=== PATIENT | female | born 1985 | race Two or more races ===

== ENCOUNTER 2021-07-17 08:58 | Outpatient (CLI) | payer OTHER | END 2021-07-17 10:30 | disposition home or self-care (01) | LOC: PRENATAL 08:58 | PROVIDERS: ATTEND Obstetrics & Gynecology Maternal & Fetal Medicine | DX: O09.529 Supervision of elderly multigravida, unspecified trimester (principal); Z36.0 Encounter for antenatal screening for chromosomal anomalies; O02.81 Inappropriate change in quantitative human chorionic gonadotropin (hCG) in early pregnancy ==

== ENCOUNTER 2021-09-12 11:00 | Outpatient (CLI) | payer OTHER | END 2021-09-12 12:15 | disposition home or self-care (01) | LOC: PRENATAL 11:00 | PROVIDERS: ATTEND Obstetrics & Gynecology Maternal & Fetal Medicine | DX: O35.0XX0 Maternal care for (suspected) central nervous system malformation in fetus, not applicable or unspecified (principal); O09.529 Supervision of elderly multigravida, unspecified trimester; Z3A.26 26 weeks gestation of pregnancy ==

== ENCOUNTER 2021-10-24 10:33 | Outpatient (CLI) | payer OTHER | END 2021-10-24 11:28 | disposition home or self-care (01) | LOC: PRENATAL 10:33 | PROVIDERS: ATTEND Obstetrics & Gynecology Maternal & Fetal Medicine | DX: O26.849 Uterine size-date discrepancy, unspecified trimester (principal); O35.0XX0 Maternal care for (suspected) central nervous system malformation in fetus, not applicable or unspecified; O09.529 Supervision of elderly multigravida, unspecified trimester; Z3A.32 32 weeks gestation of pregnancy ==

== ENCOUNTER 2021-10-28 12:44 | Outpatient (CLI) | payer OTHER | END 2021-10-28 13:36 | disposition home or self-care (01) | LOC: PRENATAL 12:44 | PROVIDERS: ATTEND Obstetrics & Gynecology Maternal & Fetal Medicine | DX: O24.419 Gestational diabetes mellitus in pregnancy, unspecified control (principal); Z3A.32 32 weeks gestation of pregnancy ==

== ENCOUNTER 2021-11-28 09:04 | Outpatient (CLI) | payer OTHER | END 2021-11-28 10:15 | disposition home or self-care (01) | LOC: PRENATAL 09:04 | PROVIDERS: ATTEND Obstetrics & Gynecology Maternal & Fetal Medicine | DX: O26.849 Uterine size-date discrepancy, unspecified trimester (principal); O35.0XX0 Maternal care for (suspected) central nervous system malformation in fetus, not applicable or unspecified; O09.529 Supervision of elderly multigravida, unspecified trimester; Z3A.37 37 weeks gestation of pregnancy ==

== ENCOUNTER 2021-12-06 13:45 | Inpatient (IN) | payer OTHER ==
[~2021-12-06] VITALS: Ht 167.6 cm; Wt 100.2 kg
[2021-12-17] MEDS ORDERED: PRENATAL TABLE1 EAC3 (08:51)
== END 2021-12-19 11:59 | disposition home or self-care (01) | DRG 807 ==
LOC: LDR 12-17 07:06 → OB/GYN 12-17 12:15 → LDR 12-17 12:29 → OB/GYN 12-17 13:07
PROVIDERS: ADMIT Obstetrics & Gynecology; ATTEND Obstetrics & Gynecology
PROC: 10E0XZZ Delivery of Products of Conception, External Approach (ICD-10-PCS; principal; 2021-12-17)
PROC: 4A1HXCZ Monitoring of Products of Conception, Cardiac Rate, External Approach (ICD-10-PCS; 2021-12-17)
DX: O24.410 Gestational diabetes mellitus in pregnancy, diet controlled (principal); Z37.0 Single live birth; Z3A.40 40 weeks gestation of pregnancy; Z20.822 Contact with and (suspected) exposure to COVID-19

== ENCOUNTER 2022-03-08 08:07 | Emergency (ER) | payer OTHER ==
[~2022-03-08] VITALS: Ht 167.6 cm; Wt 90.7 kg
[~2022-03-08 08:07] MED LIST: PRENATAL TABLE1 EAC3
== END 2022-03-08 11:46 ==
LOC: ER 08:07
DX: S00.33XA Contusion of nose, initial encounter (principal); V49.9XXA Car occupant (driver) (passenger) injured in unspecified traffic accident, initial encounter; Y93.9 Activity, unspecified; Y92.413 State road as the place of occurrence of the external cause; Y99.9 Unspecified external cause status

== ENCOUNTER 2024-07-06 20:58 | Emergency (ER) | payer OTHER ==
[~2024-07-06] VITALS: Ht 167.6 cm; Wt 90.7 kg
[2024-07-06 21:09] VITALS: BP 141/86; O2SAT 98
== END 2024-07-06 23:09 | disposition home or self-care (01) ==
LOC: ER 21:01
DX: H10.89 Other conjunctivitis (principal)